=== PATIENT | female | born 1990 | race Caucasian/White ===

== ENCOUNTER 2021-05-02 17:24 | Emergency (ER) | payer OTHER ==
[~2021-05-02] VITALS: Ht 172.7 cm; Wt 81.7 kg
[2021-05-02] MEDS ORDERED: CEPHALEXIN500 MG PO (17:50)
[2021-05-02 18:00] VITALS: BP 140/84
== END 2021-05-02 18:09 | disposition home or self-care (01) ==
LOC: M.ERS 17:24
DX: S71.112A Laceration without foreign body, left thigh, initial encounter (principal); W26.8XXA Contact with other sharp object(s), not elsewhere classified, initial encounter; Y93.89 Activity, other specified; Y92.89 Other specified places as the place of occurrence of the external cause; Y99.8 Other external cause status